=== PATIENT | male | born 1975 | race Caucasian/White ===

== ENCOUNTER 2019-02-04 05:13 | Inpatient (IN) | payer OTHER, SELFPAY ==
[2019-02-04] VITALS (25 sets, daily range): BP systolic 125–153; BP diastolic 75–103; PULSE 83–127; RESP 16–29; TEMP 36.9–37.3; O2SAT 92–97; BMI 33.9
--- NOTE | 2019-02-04 | PATH_ITS ---
[facility] Accession Number: [id number] . 01 Material submitted: . gallbladder - PORTION OF GALLBLADDER AND GALLSTONE . 01 Clinical history: . RT SIDE PAIN/NO DEEP BREATHS/SHALLOW BREATHING . 02 Diagnosis: Portion of Gallbladder and Gallstone, Cholecystectomy: Acute and gangrenous cholecystitis and cholelithiasis. Two transmural defects present at gross examination, nonspecific. . MRV 02/07/2019 1417 Local . 02 Electronically signed: . Yaneth Santo MD, Pathologist NPI- [id number] . 01 Gross description: . Specimen is received in a formalin-filled container, labeled portion of gallbladder and gallstone, and consists of a 4.5 x 2.6 x 2.1 cm, pink, hemorrhagic, smooth to diffusely cauterized gallbladder which has two transmural defects at the neck and body, 0.5 cm up to 1.6 cm. The presumed cystic duct margin is inked orange. The mucosa is diffusely hemorrhagic, trabeculated and granular, and the wall thickness ranges from 0.2 cm up to 0.7 cm. There is a single brown-black bosselated calculus present, up to 2.4 cm. Sectioning reveals hemorrhagic, otherwise unremarkable cut surfaces. [employer] sections including orange-inked cystic duct margin are submitted in A1. ([id number]) /MRV 02/06/2019 1607 Local . 02 Pathologist provided ICD-10: K81.0, K80.60 . 02 CPT . 414650 Performed at: [address] [facility], [place], [place] [id number] MD James Matos MD Phone: [phone] Performed at: [facility] [id number] [place] [id number] MD Keesha Barney MD Phone: [phone]
--- NOTE | 2019-02-04 05:17 | DI.RAD.S_ITS ---
PROCEDURE: XR CHEST 1V INDICATIONS: Chest pain TECHNIQUE: One view of the chest was acquired. COMPARISON: None. FINDINGS: Surgical changes and devices: None. Lungs and pleura: Increased attenuation is identified within the bilateral lung bases, which has a somewhat streaky or linear appearance. No definite pulmonary areas of consolidation are evident. No large effusion or definite pneumothorax is appreciated. Mediastinum: Mediastinal contours appear normal. Heart size is normal. Bones and chest wall: No suspicious bony lesions. Overlying soft tissues appear unremarkable. IMPRESSION: Bibasilar atelectasis versus scarring. Please correlate clinically to exclude pneumonia. Dictated by: Jacob Mc M.D. on 02/04/2019 at 7:38 Approved by: Jacob Mc M.D. on 02/04/2019 at 7:39
--- NOTE | 2019-02-04 05:18 | ED_ITS ---
HPI - General Adult <Tex SharronDO blair - Last Filed: 02/04/19 18:30> General Chief complaint: Abdominal Pain Stated complaint: rt side pain/no deep breaths/shallow breathing Time Seen by Provider: 02/04/19 05:16 Source: patient Mode of arrival: Ambulatory Limitations: no limitations History of Present Illness HPI narrative: 44-year-old male here for evaluation of right upper quadrant abdo conner pain and shortness of breath secondary to pain. Two days ago was seen at an outside facility for epigastric pain and back pain. That time he had lab test performed and right upper quadrant ultrasound which showed cholelithiasis but no signs of cholecystitis. He was given symptom treatment and discharged home. He was also given a referral to see General surgery as an outpatient. Patient states since that time the epigastric pain has not moved her right upper quadrant pain. States that he is having problems breathing both secondary to pain and also states that it feels like he cannot take a big deep breath. Has had some vomiting. No change in stool or bowel habits. Has had his appendix out but no other abdominal surgeries. Related Data Allergies Allergy/AdvReac Type Severity Reaction Status Date / Time No Known Drug Allergies Allergy Verified 02/04/19 06:14 Review of Systems <Tex SharronDO Nury pinto Last Filed: 02/04/19 18:30> Constitutional Constitutional: Denies fever(s) Cardiovascular Cardiovascular: Denies chest pain and Reports dyspnea Respiratory Respiratory: Reports pain on inspiration and Reports dyspnea Gastrointestinal Gastrointestinal: Reports abdominal pain, Denies change in stool character and Reports nausea Genitourinary Genitourinary: Denies dysuria Musculoskeletal Musculoskeletal: Denies myalgias and Denies arthralgias Integumentary/Breasts Skin/Breast: Denies lesions and Denies rash Psychiatric Psychiatric: Denies depression Hematologic/Lymphatic Hematologic/Lymphatic: Denies easy bleeding and Denies easy bruising Allergic/Immunologic Allergic/Immunologic: Denies urticaria Patient History <DO Nury Hurd Last Filed: 02/04/19 18:30> Medical History Patient denies medical problems (Acute) Surgical History Hx of appendectomy (Acute) Social History household members: spouse Smoking Status: Never smoker Exam <Tex Craft DO - Last Filed: 02/04/19 18:30> Initial Vital Signs Initial Vital Signs: Vital Signs Temperature 98.6 F 02/04/19 05:20 Pulse Rate 127 H 02/04/19 05:20 Respiratory Rate 28 H 02/04/19 05:20 Blood Pressure 150/99 H 02/04/19 05:20 Pulse Oximetry 94 02/04/19 05:20 Const General: cooperative, No comfortable (Uncomfortable), well groomed and acute distress Orientation: alert and awake [facility] Head: normal to inspection and normocephalic Resp Effort & Inspection: cough, labored and other (Splinting) Auscultation: clear to auscultation bilaterally Cardio Rate: tachycardic Rhythm: regular rhythm GI Inspection: non-distended Palpation: soft, No firm and tender Back/Spine/Pelvis Back: No CVA tenderness Thoracic/Lumbar Spine: No thoracic spinal tenderness and No lumbar spinal tenderness Skin Lesions: no lesions Rashes: no rashes Neuro General: alert and awake Cognition: normal cognition Speech: speech normal Extrem General: normal to inspection and capillary refill normal Psych Appearance: grossly normal and well kempt <Yaneth Pierce MD - Last Filed: 02/04/19 09:29> Initial Vital Signs Initial Vital Signs: Vital Signs Temperature 98.6 F 02/04/19 05:20 Pulse Rate 127 H 02/04/19 05:20 Respiratory Rate 28 H 02/04/19 05:20 Blood Pressure 150/99 H 02/04/19 05:20 Pulse Oximetry 94 02/04/19 05:20 Course <Tex Craft DO - Last Filed: 02/04/19 18:30> Orders Ordered: Diphenhydramine HCl (Benadryl) 25 mg IV Q6HR PRN PRN Reason: Itching Docusate Sodium (Colace) 100 mg PO BID PRN PRN Reason: Constipation Enoxaparin Sodium (Lovenox) 40 mg SUBCUT DAILY [facility] Hydromorphone HCl (Dilaudid) 0.5 mg IV Q4H PRN PRN Reason: Pain, Severe (7-10) Lactated Ringer's (Lactated Ringers) 1,000 mls @ 125 mls/hr IV CONT CHAZ Last Admin: 02/04/19 16:23 Dose: 125 mls/hr Documented by: TESSY Piperacillin/Tazobactam/Dextrose (Zosyn) 4.5 gm in 100 mls @ 200 mls/hr IV Q6H [facility] Influenza Virus Vaccine (Flu Vaccine) 0.5 ml IM .ONCE ONE Stop: 02/05/19 09:01 Naloxone HCl (Narcan) 0.2 mg IV Q2MIN PRN PRN Reason: Opiate Reversal Ondansetron HCl (Zofran) 4 mg IV Q4HR PRN PRN Reason: Nausea And Vomiting Oxycodone HCl (Percolone) 5 mg PO Q6HR PRN PRN Reason: Pain, Moderate (4-6) Last Admin: 02/04/19 16:30 Dose: 5 mg Documented by: TESSY Oxycodone/Acetaminophen (Percocet 5/325) 2 tab PO Q6HR PRN PRN Reason: Pain, Severe (7-10) Discontinued Medications Albuterol (Ventolin) 2.5 mg INH NOW PRN PRN Reason: Coughing, Wheezing, Dyspnea Benzocaine (Cepacol Lozenge) 1 each PO PRN PRN PRN Reason: Sore Throat Bupivacaine HCl/Epinephrine Bitart (Sensorcaine 0.25% W/ Epi (Pf)) 30 ml INJ NOW ONE Stop: 02/04/19 11:34 Last Admin: 02/04/19 11:33 Dose: 40 ml Documented by: EZEQUIEL Fentanyl (Sublimaze) 50 mcg IV Q5MIN PRN PRN Reason: Pain, Moderate (4-6) Hydromorphone HCl (Dilaudid) 0.5 mg IV NOW ONE Stop: 02/04/19 05:39 Last Admin: 02/04/19 05:44 Dose: 0.5 mg Documented by: ARTEM Hydromorphone HCl (Dilaudid) 0.5 mg IV Q5MIN PRN PRN Reason: Pain, Moderate (4-6) Last Admin: 02/04/19 15:07 Dose: 0.5 mg Documented by: APARNAORRIO Hydroxyzine HCl (Vistaril) 25 mg IM NOW PRN PRN Reason: Pain, Mild (1-3) Sodium Chloride (Normal Saline 0.9%) 1,000 mls @ 150 mls/hr IV CONT CHAZ Last Infusion: 02/04/19 11:47 Dose: 200 mls/hr Documented by: Infusion: 02/04/19 10:44 Dose: 200 mls/hr Documented by: Infusion: 02/04/19 10:20 Dose: 200 mls/hr Documented by: Infusion: 02/04/19 09:00 Dose: 150 mls/hr Documented by: Infusion: 02/04/19 08:00 Dose: 0 mls/hr Documented by: Admin: 02/04/19 07:28 Dose: 150 mls/hr Documented by: MARK Piperacillin/Tazobactam/Dextrose (Zosyn) 3.375 gm in 50 mls @ 100 mls/hr IV NOW ONE Stop: 02/04/19 07:57 Last Admin: 02/04/19 14:45 Dose: 100 mls/hr Documented by: Infusion: 02/04/19 08:54 Dose: 0 mls/hr Documented by: Infusion: 02/04/19 08:45 Dose: 100 mls/hr Documented by: Infusion: 02/04/19 08:00 Dose: 0 mls/hr Documented by: Admin: 02/04/19 07:39 Dose: 100 mls/hr Documented by: MARK Lactated Ringer's (Lactated Ringers) 1,000 mls @ 42 mls/hr IV CONT CHAZ Last Admin: 02/04/19 11:49 Dose: 42 mls/hr Documented by: Infusion: 02/04/19 11:48 Dose: 0 mls/hr Documented by: Admin: 02/04/19 10:53 Dose: 42 mls/hr Documented by: CHRIS Iopamidol (Isovue-M 300) 15 ml INJ NOW ONE Stop: 02/04/19 13:53 Last Admin: 02/04/19 13:53 Dose: 30 ml Documented by: EZEQUIEL Lorazepam (Ativan) 0.25 mg IV NOW PRN PRN Reason: Anxiety Meperidine HCl (Demerol) 25 mg IV Q5MIN PRN PRN Reason: Pain or shivering Metoclopramide HCl (Reglan) 10 mg IV NOW PRN PRN Reason: Nausea And Vomiting Ondansetron HCl (Zofran) 4 mg IV NOW PRN PRN Reason: Nausea And Vomiting Vital Signs Vital signs: Vital Signs - 8 hr 02/04/19 05:20 02/04/19 05:39 02/04/19 06:45 Temperature 98.6 F Pulse Rate 127 H 107 H 91 H Respiratory Rate 28 H 29 H 21 Blood Pressure 150/99 H Blood Pressure [Right Arm] 150/99 H 134/91 H Pulse Oximetry 94 94 92 02/04/19 07:43 02/04/19 09:09 Temperature Pulse Rate 90 83 Respiratory Rate 19 16 Blood Pressure Blood Pressure [Right Arm] 128/75 125/78 Pulse Oximetry 93 92 <Yaneth Pierce MD - Last Filed: 02/04/19 09:29> Course Course Narrative: The patient was signed out to me at change of shift by Dr. Craft, pending eMAR CP evaluation by surgery. MRCP was done, and showed appeared to be a cholecystitis, secondary to cholelithiasis. I spoke with Dr. Heredia again, who came to see the patient in the emergency department and agreed to admit the patient to her service. The patient received Zosyn in the emergency department. Orders Ordered: Diphenhydramine HCl (Benadryl) 25 mg IV Q6HR PRN PRN Reason: Itching Docusate Sodium (Colace) 100 mg PO BID PRN PRN Reason: Constipation Enoxaparin Sodium (Lovenox) 40 mg SUBCUT DAILY [facility] Hydromorphone HCl (Dilaudid) 0.5 mg IV Q4H PRN PRN Reason: Pain, Severe (7-10) Lactated Ringer's (Lactated Ringers) 1,000 mls @ 125 mls/hr IV CONT CHAZ Last Admin: 02/04/19 16:23 Dose: 125 mls/hr Documented by: TESSY Piperacillin/Tazobactam/Dextrose (Zosyn) 4.5 gm in 100 mls @ 200 mls/hr IV Q6H [facility] Influenza Virus Vaccine (Flu Vaccine) 0.5 ml IM .ONCE ONE Stop: 02/05/19 09:01 Naloxone HCl (Narcan) 0.2 mg IV Q2MIN PRN PRN Reason: Opiate Reversal Ondansetron HCl (Zofran) 4 mg IV Q4HR PRN PRN Reason: Nausea And Vomiting Oxycodone HCl (Percolone) 5 mg PO Q6HR PRN PRN Reason: Pain, Moderate (4-6) Last Admin: 02/04/19 16:30 Dose: 5 mg Documented by: TESSY Oxycodone/Acetaminophen (Percocet 5/325) 2 tab PO Q6HR PRN PRN Reason: Pain, Severe (7-10) Discontinued Medications Albuterol (Ventolin) 2.5 mg INH NOW PRN PRN Reason: Coughing, Wheezing, Dyspnea Benzocaine (Cepacol Lozenge) 1 each PO PRN PRN PRN Reason: Sore Throat Bupivacaine HCl/Epinephrine Bitart (Sensorcaine 0.25% W/ Epi (Pf)) 30 ml INJ NOW ONE Stop: 02/04/19 11:34 Last Admin: 02/04/19 11:33 Dose: 40 ml Documented by: EZEQUIEL Fentanyl (Sublimaze) 50 mcg IV Q5MIN PRN PRN Reason: Pain, Moderate (4-6) Hydromorphone HCl (Dilaudid) 0.5 mg IV NOW ONE Stop: 02/04/19 05:39 Last Admin: 02/04/19 05:44 Dose: 0.5 mg Documented by: ARTEM Hydromorphone HCl (Dilaudid) 0.5 mg IV Q5MIN PRN PRN Reason: Pain, Moderate (4-6) Last Admin: 02/04/19 15:07 Dose: 0.5 mg Documented by: STEPHANIEIO Hydroxyzine HCl (Vistaril) 25 mg IM NOW PRN PRN Reason: Pain, Mild (1-3) Sodium Chloride (Normal Saline 0.9%) 1,000 mls @ 150 mls/hr IV CONT CHAZ Last Infusion: 02/04/19 11:47 Dose: 200 mls/hr Documented by: Infusion: 02/04/19 10:44 Dose: 200 mls/hr Documented by: Infusion: 02/04/19 10:20 Dose: 200 mls/hr Documented by: Infusion: 02/04/19 09:00 Dose: 150 mls/hr Documented by: Infusion: 02/04/19 08:00 Dose: 0 mls/hr Documented by: Admin: 02/04/19 07:28 Dose: 150 mls/hr Documented by: MARK Piperacillin/Tazobactam/Dextrose (Zosyn) 3.375 gm in 50 mls @ 100 mls/hr IV NOW ONE Stop: 02/04/19 07:57 Last Admin: 02/04/19 14:45 Dose: 100 mls/hr Documented by: Infusion: 02/04/19 08:54 Dose: 0 mls/hr Documented by: Infusion: 02/04/19 08:45 Dose: 100 mls/hr Documented by: Infusion: 02/04/19 08:00 Dose: 0 mls/hr Documented by: Admin: 02/04/19 07:39 Dose: 100 mls/hr Documented by: MARK Lactated Ringer's (Lactated Ringers) 1,000 mls @ 42 mls/hr IV CONT CHAZ Last Admin: 02/04/19 11:49 Dose: 42 mls/hr Documented by: Infusion: 02/04/19 11:48 Dose: 0 mls/hr Documented by: Admin: 02/04/19 10:53 Dose: 42 mls/hr Documented by: CHRIS Iopamidol (Isovue-M 300) 15 ml INJ NOW ONE Stop: 02/04/19 13:53 Last Admin: 02/04/19 13:53 Dose: 30 ml Documented by: EZEQUIEL Lorazepam (Ativan) 0.25 mg IV NOW PRN PRN Reason: Anxiety Meperidine HCl (Demerol) 25 mg IV Q5MIN PRN PRN Reason: Pain or shivering Metoclopramide HCl (Reglan) 10 mg IV NOW PRN PRN Reason: Nausea And Vomiting Ondansetron HCl (Zofran) 4 mg IV NOW PRN PRN Reason: Nausea And Vomiting Vital Signs Vital signs: Vital Signs - 8 hr 02/04/19 05:20 02/04/19 05:39 02/04/19 06:45 Temperature 98.6 F Pulse Rate 127 H 107 H 91 H Respiratory Rate 28 H 29 H 21 Blood Pressure 150/99 H Blood Pressure [Right Arm] 150/99 H 134/91 H Pulse Oximetry 94 94 92 02/04/19 07:43 02/04/19 09:09 Temperature Pulse Rate 90 83 Respiratory Rate 19 16 Blood Pressure Blood Pressure [Right Arm] 128/75 125/78 Pulse Oximetry 93 92 Medical Decision Making <Tex Craft DO - Last Filed: 02/04/19 18:30> Lab Data Lab results reviewed: Yes I reviewed the patient's lab results. Result diagrams: 02/04/19 05:30 02/04/19 05:30 Labs: Lab Results 02/04/19 02/04/19 Range/Units 05:30 05:30 WBC 16.3 H (4.5-11.0) X10^3/uL RBC 5.00 (4.5-5.9) X10^6/uL Hgb 15.7 (13.5-17.5) g/dL Hct 44.8 (41-53) % MCV 89.7 (80-100) fL MCH 31.5 (26-34) PG MCHC 35.1 (30-36) % RDW 13.2 (11.6-14.8) % Plt Count 262 (150-400) X10^3/uL Neut % (Auto) 70.9 (50-75) % Lymph % (Auto) 12.6 L (25-40) % [place] % (Auto) 15.5 H (3-14) % Eos % (Auto) 0.4 L (2-4) % Baso % (Auto) 0.6 (0-2) % Neut # (Auto) 16581 H (2229-7465) /uL Lymph # (Auto) 2000 (5950-8010) /uL [place] # (Auto) 2500 H (0-900) /uL Eos # (Auto) 100 (0-450) /uL Baso # (Auto) 100 (0-100) /uL Sodium 138 (137-145) mmol/L Potassium 4.1 (3.4-5.1) mmol/L Chloride 102 (98-107) mmol/L Carbon Dioxide 26 (22-32) mmol/L BUN 16 (9-20) mg/dL Creatinine 1.10 (0.66-1.25) mg/dL Estimated GFR > 60.0 (>60) mL/min BUN/Creatinine Ratio 14.5 (6-22) Glucose 114 H (70-100) mg/dL Calcium 9.3 (8.4-10.2) mg/dL Total Bilirubin 3.1 H (0.2-1.3) mg/dL AST 44 (17-59) IU/L ALT 61 H (<50) IU/L Alkaline Phosphatase 99 (38-126) U/L Total Protein 8.0 (6.3-8.2) g/dL Albumin 4.5 (3.5-5.0) g/dL Globulin 3.5 (1.7-4.1) g/dL Albumin/Globulin Ratio 1.3 (1.0-2.8) Lipase 97 (23-300) U/L Imaging Data US - abdomen: Radiologist's impression: Non mobile gallstones, gallbladder wall thickening with a positive sonographic Finney sign. Consistent with acute cholecystitis. No mention of gallbladder duct size. ECG Data Attestation: I personally reviewed and interpreted this ECG as follows: Prior ECG tracings: not available for review Interpretation: Sinus tachycardia Ventricular rate of 104 Normal axis Normal QRS Normal QTC No ST T wave changes MDM Narrative Medical decision making narrative: Labs from outside facility dated 02/02/2019 AST 38 ALT 52 Alk-phos 109 Total bilirubin 1.2 Additional Information: Patient's history and physical exam and labs and ultrasound is concerning for gallbladder pathology and acute cholecystitis. Patient symptoms improved after pain medication. Did discuss the case with Dr. Heredia with General surgery. Given his elevated bilirubin feel the patient needs a MRCP for further evaluation. This is ordered. Care turned over to Dr. Pierce at change of shift to follow up on MRCP and disposition. <Yaneth Pierce MD - Last Filed: 02/04/19 09:29> Medical Records Medical records reviewed: Yes I reviewed the patient's medical records. Lab Data Lab results reviewed: Yes I reviewed the patient's lab results. Labs: Lab Results 02/04/19 02/04/19 Range/Units 05:30 05:30 WBC 16.3 H (4.5-11.0) X10^3/uL RBC 5.00 (4.5-5.9) X10^6/uL Hgb 15.7 (13.5-17.5) g/dL Hct 44.8 (41-53) % MCV 89.7 (80-100) fL MCH 31.5 (26-34) PG MCHC 35.1 (30-36) % RDW 13.2 (11.6-14.8) % Plt Count 262 (150-400) X10^3/uL Neut % (Auto) 70.9 (50-75) % Lymph % (Auto) 12.6 L (25-40) % [place] % (Auto) 15.5 H (3-14) % Eos % (Auto) 0.4 L (2-4) % Baso % (Auto) 0.6 (0-2) % Neut # (Auto) 34034 H (9913-3061) /uL Lymph # (Auto) 2000 (4740-0894) /uL [place] # (Auto) 2500 H (0-900) /uL Eos # (Auto) 100 (0-450) /uL Baso # (Auto) 100 (0-100) /uL Sodium 138 (137-145) mmol/L Potassium 4.1 (3.4-5.1) mmol/L Chloride 102 (98-107) mmol/L Carbon Dioxide 26 (22-32) mmol/L BUN 16 (9-20) mg/dL Creatinine 1.10 (0.66-1.25) mg/dL Estimated GFR > 60.0 (>60) mL/min BUN/Creatinine Ratio 14.5 (6-22) Glucose 114 H (70-100) mg/dL Calcium 9.3 (8.4-10.2) mg/dL Total Bilirubin 3.1 H (0.2-1.3) mg/dL AST 44 (17-59) IU/L ALT 61 H (<50) IU/L Alkaline Phosphatase 99 (38-126) U/L Total Protein 8.0 (6.3-8.2) g/dL Albumin 4.5 (3.5-5.0) g/dL Globulin 3.5 (1.7-4.1) g/dL Albumin/Globulin Ratio 1.3 (1.0-2.8) Lipase 97 (23-300) U/L Imaging Data MRI - abdomen: Radiologist's impression: PROCEDURE: MR ABDOMEN WO CON INDICATIONS: eval for CBD stones TECHNIQUE: Coronal HASTE through the abdomen, axial 2-D FLASH in- and [id number], and breath-hold T2 FSE with fat saturation through the biliary system and pancreas. Oblique coronal and axial thin-slice HASTE, radial thick-slab HASTE centered on the extrahepatic bile ducts. Intravenous secretin: Not requested. COMPARISON: [facility], , ABDOMEN LIMITED, 02/04/2019, 6:01. FINDINGS: Image quality: Diagnostic. Liver and biliary system: The liver is normal in size and demonstrates prominent signal dropout on opposed phased images, compatible with hepatic steatosis. No definite liver lesions are appreciated. However, there may be a tiny cyst evident involving the posterior right hepatic lobe. No intrahepatic biliary dilatation is identified. The common bile duct measures up to approximately 7 mm in diameter, which is mildly enlarged. A prominent gallstone measuring up to approximately 1.8 cm is present within the neck of the gallbladder. Additional sludge within the gallbladder is present. There is borderline thickening of the pole of the gallbladder with prominent p ericholecystic edema and fluid evident. The expected flow voids are identified within the portal and hepatic veins. Other solid organs: There is slight edema about the region of the head of the p ancreas, which is likely reactive. No loculated fluid collections are identified. The adrenals and kidneys are within normal limits. The spleen is mildly enlarged at 12.3 cm in craniocaudal dimension. Nodes and vessels: No retroperitoneal or mesenteric adenopathy by size criteria. Aorta and inferior vena cava are normal in size. Bowel and peritoneum: The imaged bowel loops are nondilated. Mild edema and a small amount of free fluid within the right upper quadrant is present. No loculated fluid collections are identified. A small fat containing periumbilical hernia is incidentally noted. Lung bases: No basal pleural effusions. Heart size is normal. Bones and soft tissues: No ventral hernias. Bone marrow is of normal overall signal. IMPRESSION: 1. Cholelithiasis with prominent edema within the soft tissue surrounding the gallbladder and borderline enlargement of the common bile duct is suspicious for acute cholecystitis. Please correlate clinically. 2. Choledocholithiasis. 3. Hepatic steatosis. 4. Mild splenomegaly. Dictated by: Jacob Mc M.D. on 02/04/2019 at 7:55 Approved by: Jacob Mc M.D. on 02/04/2019 at 7:59 Discharge Plan Departure Patient Disposition: Admitted As Inpatient Clinical Impression: Acute cholecystitis Discharge Date/Time: 02/04/19 10:46 Admit Date/Time: 02/04/19 09:35 Admit Provider: Ira Heredia
--- NOTE | 2019-02-04 05:31 | DI.US.S_ITS ---
PROCEDURE: US ABDOMEN LIMITED INDICATIONS: RIGHT UPPER QUADRANT ULTRASOUND EVALULATE FOR CHOLECYSTITIS TECHNIQUE: Real-time focused scanning was performed of the abdomen, with image documentation. COMPARISON: [facility], US, US ABDOMEN COMPLETE, 02/02/2019, 16:10. FINDINGS: The study was technically challenging related to the patient's body habitus and increased echogenicity of the liver. The imaged portions of the liver are noted to be prominently echogenic when compared to the right kidney. No focal liver lesion is identified. Gallstones are present within the gallbladder with prominent wall thickening of the gallbladder measuring up to 7 mm. The patient exhibited a positive sonographic Finney sign. A gallstone is evident at the neck of the gallbladder which is non-mobile. Debris is seen within the fundal portion of the gallbladder. The biliary ducts were not well seen the pancreas was not adequately seen, as well related to overlying bowel gas. IMPRESSION: 1. Nonmobile stone within the neck of the gallbladder with corresponding gallbladder wall thickening and a positive sonographic Finney sign is suspicious for cholecystitis. Please correlate clinically. 2. Probable hepatic steatosis. Note: The preliminary report provided by [employer]. is concordant with the final report. Dictated by: Jacob Mc M.D. on 02/04/2019 at 7:33 Approved by: Jacob Mc M.D. on 02/04/2019 at 7:36
--- NOTE | 2019-02-04 05:37 | PC.NURSE ---
reports normal poop
[2019-02-04 05:39] LABS: Add Manual Diff / Slide Review NO; Basophils Absolute Auto 100 /uL (0-100); Basophils Percent Auto 0.6 % (0-2); Eosinophils Absolute Auto 100 /uL (0-450); Eosinophils Percent Auto 0.4 % (2-4); Hematocrit 44.8 % (41-53); Hemoglobin 15.7 g/dL (13.5-17.5); Lymphocytes Absolute Auto 2000 /uL (1100-4500); Lymphocytes Percent Auto 12.6 % (25-40); Mean Corpuscular HGB Conc 35.1 % (30-36); Mean Corpuscular Hemoglobin 31.5 PG (26-34); Mean Corpuscular Volume 89.7 fL (80-100); Monocytes Absolute Auto 2500 /uL (0-900); Monocytes Percent Auto 15.5 % (3-14); Neutrophils Absolute Auto 11500 /uL (1500-7000); Neutrophils Percent Auto 70.9 % (50-75); Platelet Count 262 X10^3/uL (150-400); Red Cell Distribution Width 13.2 % (11.6-14.8); White Blood Cell Count 16.3 X10^3/uL (4.5-11.0)
[2019-02-04] MEDS: HYDROMORPHONE 0.5 MG INJ IV ×2 (05:44→18:52)
[2019-02-04 05:54] LABS: Alanine Aminotransferase 61 IU/L (<50); Albumin 4.5 g/dL (3.5-5.0); Albumin Globulin Ratio 1.3 (1.0-2.8); Alkaline Phosphatase 99 U/L (38-126); Aspartate Aminotransferase 44 IU/L (17-59); BUN Creatinine Ratio 14.5 (6-22); Bilirubin Total 3.1 mg/dL (0.2-1.3); Blood Urea Nitrogen 16 mg/dL (9-20); Calcium 9.3 mg/dL (8.4-10.2); Carbon Dioxide 26 mmol/L (22-32); Chloride 102 mmol/L (98-107); Estimated Glomerular Filt Rate > 60.0 mL/min (>60); Globulin 3.5 g/dL (1.7-4.1); Glucose 114 mg/dL (70-100); HEMOLYSIS < 15 (0-50); Lipase 97 U/L (23-300); Potassium 4.1 mmol/L (3.4-5.1); Sodium 138 mmol/L (137-145)
--- NOTE | 2019-02-04 07:00 | DI.MRI.S_ITS ---
PROCEDURE: MR ABDOMEN WO CON INDICATIONS: eval for CBD stones TECHNIQUE: Coronal HASTE through the abdomen, axial 2-D FLASH in- and [id number], and breath-hold T2 FSE with fat saturation through the biliary system and pancreas. Oblique coronal and axial thin-slice HASTE, radial thick-slab HASTE centered on the extrahepatic bile ducts. Intravenous secretin: Not requested. COMPARISON: [facility], , ABDOMEN LIMITED, 02/04/2019, 6:01. FINDINGS: Image quality: Diagnostic. Liver and biliary system: The liver is normal in size and demonstrates prominent signal dropout on opposed phased images, compatible with hepatic steatosis. No definite liver lesions are appreciated. However, there may be a tiny cyst evident involving the posterior right hepatic lobe. No intrahepatic biliary dilatation is identified. The common bile duct measures up to approximately 7 mm in diameter, which is mildly enlarged. A prominent gallstone measuring up to approximately 1.8 cm is present within the neck of the gallbladder. Additional sludge within the gallbladder is present. There is borderline thickening of the pole of the gallbladder with prominent pericholecystic edema and fluid evident. The expected flow voids are identified within the portal and hepatic veins. Other solid organs: There is slight edema about the region of the head of the pancreas, which is likely reactive. No loculated fluid collections are identified. The adrenals and kidneys are within normal limits. The spleen is mildly enlarged at 12.3 cm in craniocaudal dimension. Nodes and vessels: No retroperitoneal or mesenteric adenopathy by size criteria. Aorta and inferior vena cava are normal in size. Bowel and peritoneum: The imaged bowel loops are nondilated. Mild edema and a small amount of free fluid within the right upper quadrant is present. No loculated fluid collections are identified. A small fat containing periumbilical hernia is incidentally noted. Lung bases: No basal pleural effusions. Heart size is normal. Bones and soft tissues: No ventral hernias. Bone marrow is of normal overall signal. IMPRESSION: 1. Cholelithiasis with prominent edema within the soft tissue surrounding the gallbladder and borderline enlargement of the common bile duct is suspicious for acute cholecystitis. Please correlate clinically. 2. Choledocholithiasis. 3. Hepatic steatosis. 4. Mild splenomegaly. Dictated by: Jacob Mc M.D. on 02/04/2019 at 7:55 Approved by: Jacob Mc M.D. on 02/04/2019 at 7:59
[2019-02-04] MEDS: SODIUM CHLORIDE 0.9% 1,000 ML 150 ML IV (07:28)
--- NOTE | 2019-02-04 07:32 | PC.NURSE ---
alert oriented x4 ,maew, skin warm dry pink. reports, right upper abdominal pain onset tuesday, evaluated at [facility], dx with cholelithiasis, given rx for pain controlled, felt fine tuesday, had macaroni and cheese at night, then woke up at 4am today with severe pain, shortness of breath due to pain, denies fever or vomiting.
[2019-02-04] MEDS: PIPERACILLIN-TAZO 3.375 GM/50 ML FROZ.PIGGY IV ×2 (07:39→14:45)
--- NOTE | 2019-02-04 07:43 | PC.NURSE ---
last solid meal last night at 1700, last drink at 700am today, pt aware and verbal understanding npo at this time.
--- NOTE | 2019-02-04 09:38 | PM.HP.1 ---
History of Present Illness History of Present Illness Date Patient Seen: 02/04/19 Time Patient Seen: 09:38 Chief complaint: rt side pain/no deep breaths/shallow breathing Narrative: This is a 44-year-old man with history of obesity, sleep apnea, acid reflux, gallstones with biliary colic, who comes in to the ER this morning complaining of 1 day of severe right upper quadrant pain causing him shortness of breath. He was seen in the ER at [facility] in [facility] on Tuesday, with some epigastric pain and was found to have gallstones but no signs of cholecystitis, and was sent home with pain medicine and antiemetics. His pain resolved on Tuesday, but then started again on Tuesday night after dinner. He denies nausea or vomiting, denies fevers denies jaundice. In the ER he had an ultrasound which showed gallstones, gallbladder wall thickening and pericholecystic fluid. He also had a bilirubin of 3.1. For this reason he was sent for an urgent MRCP. 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 Past medical history: Sleep apnea, acid reflux, biliary colic, gallstones Past surgical history: Laparoscopic appendectomy with drain placement Allergies: Denies Medications: Omeprazole, oxycodone, Zofran Family history: Patient's mother just had her gallbladder out 2 weeks ago, no other family history of gallbladder disease. No other relevant family history. Social history: Occasional alcohol, denies tobacco, denies other substances. Lives at home with his . ROS: 10 system review was completed. Nothing remarkable other than as mentioned in the HPI. PE: GENERAL: Well groomed and cooperative. Appears stated age. Answers questions promptly and appropriately. Vital signs noted. HENT: Normocephalic, atraumatic. Hearing intact. Oral mucosa is pink and moist. EYES: Conjunctiva pink, sclera white, no periorbital swelling. CARDIOVASCULAR: Regular rate. No pedal edema. RESPIRATORY: Normal respiratory rate, mild tachypnea secondary to right upper quadrant pain GASTROINTESTINAL: Abdomen soft and non-distended; significant tenderness to palpation in the right upper quadrant GENITALURINARY: + right flank tenderness. MUSCULOSKELETAL: Equal tone and mass bilaterally. SKIN: Warm, dry, soft, appropriate color for ethnicity. No other lesions, rashes, or wounds. NEURO: Alert and Oriented X 3. No gross sensory deficits, or cognitive issues. PSYCH: Appropriate affect and mood. Patient History Medical History Patient denies medical problems (Acute) Surgical History Hx of appendectomy (Acute) Family & Social History Safety & Behavioral: Feels Safe in Current Yes Environment Tobacco & Substance use: Smoking Status Never smoker alcohol intake frequency a few times a month Substance Use Type does not use Meds Home Medications and Allergies Allergies Allergy/AdvReac Type Severity Reaction Status Date / Time No Known Drug Allergies Allergy Verified 02/04/19 06:14 Exam Vital Signs (past 8 hours): - 02/04/19 05:20 02/04/19 05:39 02/04/19 06:45 Temperature 98.6 F Pulse Rate 127 H 107 H 91 H Respiratory Rate 28 H 29 H 21 Blood Pressure 150/99 H Blood Pressure [Right Arm] 150/99 H 134/91 H Pulse Oximetry 94 94 92 02/04/19 07:43 02/04/19 09:09 Temperature Pulse Rate 90 83 Respiratory Rate 19 16 Blood Pressure Blood Pressure [Right Arm] 128/75 125/78 Pulse Oximetry 93 92 Oxygen Delivery Method Room Air Objective Labs Result Diagrams: 02/04/19 05:30 02/04/19 05:30 Labs: Laboratory Results - last 24 hr 02/04/19 02/04/19 05:30 05:30 WBC 16.3 H RBC 5.00 Hgb 15.7 Hct 44.8 MCV 89.7 MCH 31.5 MCHC 35.1 RDW 13.2 Plt Count 262 Neut % (Auto) 70.9 Lymph % (Auto) 12.6 L [place]bach % (Auto) 15.5 H Eos % (Auto) 0.4 L Baso % (Auto) 0.6 Neut # (Auto) 60846 H Lymph # (Auto) 2000 [place]bach # (Auto) 2500 H Eos # (Auto) 100 Baso # (Auto) 100 Sodium 138 Potassium 4.1 Chloride 102 Carbon Dioxide 26 BUN 16 Creatinine 1.10 Estimated GFR > 60.0 BUN/Creatinine Ratio 14.5 Glucose 114 H Calcium 9.3 Total Bilirubin 3.1 H AST 44 ALT 61 H Alkaline Phosphatase 99 Total Protein 8.0 Albumin 4.5 Globulin 3.5 Albumin/Globulin Ratio 1.3 Lipase 97 Assessment & Plan Assessment and plan (1) Acute cholecystitis: Problem details: Severe acute on chronic cholecystitis Current visit: Yes Status: Acute (2) Elevated bilirubin: Problem details: MRI shows no obstructing stones in the common duct Current visit: Yes Status: Acute (3) Obesity (BMI 30.0-34.9): Problem details: BMI 33 Current visit: Yes Status: Acute (4) Obstructive sleep apnea: Current visit: Yes Status: Acute (5) Acid reflux: Problem details: Controlled on omeprazole Current visit: Yes Status: Acute Assessment & Plan narrative: This is a 44-year-old man with acute on chronic cholecystitis. I discussed with him the risks and benefits of going ahead with laparoscopic cholecystectomy in this situation. I explained to him that given the inflammation around his gallbladder this slightly increases the chance of a complication during his surgery, however waiting is likely to increase the risk. I have explained him the risk of bleeding, infection, damage to nearby structures, injury to bile ducts, bile leak, need for additional procedures, need to transfer to an outside hospital, need for open surgery, need for prolonged hospitalization, need for drain placement. The patient desires to proceed with surgery. Plan: NPO, IV fluids, Zosyn To OR for laparoscopic, possible open cholecystectomy as soon as possible 45 minutes were spent face to face with the patient. More than 50% of the time was spent in counseling and co-ordination of care regarding his acute gallbladder disease, the need for urgent gallbladder surgery, and the possible risks and expected outcomes of this procedure. Time Spent With Patient Time with patient: Greater than 35 minutes Quality VTE Deep Vein Thrombosis/Pulmonary Embolism Present on Admission: No
[2019-02-04] MEDS: LACTATED RINGERS 1,000 ML 42 ML IV ×2 (10:53→11:49)
--- NOTE | 2019-02-04 11:23 | SUR.OPER ---
Supine on padded OR bed, head on pillow, safety belt at thigh, bilateral arms secured on padded armboards, less than 90 degrees. Legs uncrossed. Padded footboard in place. Tape over blanket to secure lower legs.
[2019-02-04] MEDS: BUPIVACAINE 0.25% W/ EPI 30 ML VIAL INJ (11:33)
[2019-02-04] MEDS: IOPAMIDOL 15 ML VIAL INJ (13:53)
[2019-02-04] MEDS: HYDROMORPHONE 2 MG INJ 0.5 MG IV (15:07)
--- NOTE | 2019-02-04 15:08 | PM.OP.1 ---
Operative Date/Time/Diagnoses Date of procedure: 02/04/19 Time of procedure: 10:15 Pre-op diagnosis: Acute on chronic cholecystitis with an impacted gall stone Post-op diagnosis: same Procedure & Clinicians Procedure: Laparoscopic subtotal cholecystectomy and intra operative cholangiogram. Prolonged operative time due to extensive chronic and acute inflammation and intrahepatic gallbladder. Same procedure as scheduled: Yes Indications: Acute on chronic cholecystitis Surgeon: Ira Heredia Click Yes if Unassisted: Yes Anesthesia Type: General Operative Notes Findings: Thickened gall bladder with heavy acute and chronic scar tissue with impacted gall stone. Specimen(s): other Prosthetic devices, grafts, tissues, transplants, or devices: gall bladder fundus and impacted gall stone Estimated Blood Loss (mL): 50 Procedure in detail: The patient was brought into the operating room and placed supine on the OR table. Sequential compression devices were placed on both legs and turned on. Appropriate perioperative antibiotics were given prior to the start of surgery. General anesthesia was induced the patient was intubated. The abdomen was prepped and draped in sterile fashion. Surgical time-out was conducted. Local anesthetic was injected under the skin just superior to the umbilicus and a 5 mm vertical incision was made at this site. The umbilical stalk was grasped with a Radha and elevated. A Veress needle was passed through the fascia into proper position. The position was tested with a saline drop test which was appropriate for intra-abdominal Veress needle placement. The abdomen was then insufflated in the usual fashion. Once insufflated to 15 mm Hg the Veress needle was removed and a 5 mm optical trocar was placed under direct vision using a 5 mm 30 degree scope. Once the camera was inside the abdomen I took a look around. There was no injury from port placement. Two additional ports were placed in a similar fashion in the right upper quadrant. There was densely adherent omentum stuck down over top of the liver and gallbladder. This was peeled down using blunt graspers through the 2 lateral port sites. Once the gallbladder came into view the fundus of the gallbladder was grasped and elevated. It was hard and thickened. I then placed a 10 mm port in the epigastrium. The gallbladder was extremely thickened and intrahepatic. The gallbladder was grasped and elevated using the right upper quadrant lateral grasper using. Using a Kittner I gently swept down the adherent colon and duodenum from the gallbladder, exposing the gallbladder surface. All landmarks were obscured by acute and chronic inflammatory rind. I was unable to distinguish the infundibulum or triangle of Calot from the common duct. It was unsafe to proceed with dissection at the hilum and so my attention was turned to the gallbladder fundus for a top down dissection. The fundus was retracted downwards and I began to dissect the plane between the gallbladder and the liver using hook cautery. The gallbladder was very thick and was densely adherent to the liver, but I was able to dissect through the gallbladder wall itself leaving a thin layer of the gall bladder wall on the liver. Through meticulous careful prolonged tedious dissection I gradually took the fundus of the gallbladder off of the liver. About [address] the gallbladder I reached an impacted stone with no clear posterior wall of the gallbladder at this point consistent with a posterior perforation of the gallbladder. I then and removed the stone using a stone forceps. It was approximately 2 cm in size, as described on the MRCP as an impacted stone in the neck of the gallbladder. This was removed and placed into an Endo-Catch bag over top of the liver. There was no refluxing of bile from the area of the stone, and a cystic duct lumen could not be visualized in the midst of extreme inflammatory scar tissue. I then continued to dissect the gallbladder off of the liver as far down as I safely could. This required painstaking and slow, tedious dissection in order to avoid injury to the common bile duct or significant bleeding. This required an additional hour of operative time in order to complete the dissection safely. A 22 modifier should be included in the coding for this case due to the prolonged and tedious dissection necessary to safely complete the operation due to patient disease. Once I had taken the gallbladder as far down as I felt that I safely could, I began to divide it, transecting the gallbladder wall about midway down the body of the gallbladder. No cystic duct lumen could be identified. As I dissected through the gallbladder wall there were 2 arterial structures that bled during dissection. These were difficult to control, as they were coming right out of the middle of thickened scar tissue with no clear vascular structure that could be identified. I controlled the bleeding by grasping the gallbladder wall in the area of bleeding using a [place] grasper. At this point I went ahead and brought my endo-loops in and placed 2 of them across the gallbladder just below the area of bleeding. This controlled the bleeding and I continued to transect the gallbladder distal to these endo-loops. Once I dissected the distal portion of the gallbladder off and put it inside the Endo-Catch bag, I went back to scrutinized the gallbladder fossa and the area of the impacted stone. I was not able to clearly dissect out any ductal structures due to the extensive inflammatory rind and plastered appearance of the gallbladder hilum and the expected area of Calot's triangle. At this point I dropped a cholangiocatheter into the area where the impacted stone had been removed in order to ensure this was not an open cystic duct, and secured the catheter in place with an Covarrubias clamp. Contrast was injected as fluoroscopic images were taken, but the contrast drained out around the site and did not delineate any ductal structures. I felt comfortable that the area I had endo looped included the main body of the gallbladder and that the cystic duct was likely proximal to that structure and therefore closed. At this point I went back to look at the gallbladder fossa to ensure hemostasis on the liver bed. There was no active bleeding or leaking of bile. I cauterized the surface of the gallbladder fossa using hook cautery. The entire area was irrigated and suctioned clean. I placed a 19 round Ramy drain through the lateral port site and placed a channel portion of the drain in the subhepatic space. At this point the epigastric port site was closed with 0 Vicryl suture in the fascia using a suture passer, 3-O Vicryl in the subcutaneous layers, and 4-0 Monocryl in the skin. The remaining port sites were closed with 4-0 Monocryl in the skin. Each port site was sealed with Dermabond. Local anesthetic was given at each of the port sites and in the fascia. This concluded the procedure. At this point the needle, sponge, and instrument counts were correct. The gallbladder and stone were passed off the table for pathology. Patient was awakened from anesthesia and extubated. He was transferred to the postanesthesia care unit in stable condition. Complications: none Post-operative Condition: stable Disposition: PACU Plan for aftercare: Admit for observation, drain management, IV antibiotics, and pain control
--- NOTE | 2019-02-04 15:14 | SUR.PHASEI ---
PACU Phase 1 note: patient arrived to PACUv via inpatient bed at 1442. Oral airway in place. Respirations regular and unlabored. VSS, O2 Sat WNL on 12 L/ Simple mask. Abdominal surgical sites CDI,ANA to bulb suction. Dression CDI. Patient arousable by voice at 1448, oral airway discontinued and CPAP placed by Respiratory Therapy with O2. Sats WNL on 6 L/VAULT SERVICE MECHANIC. Received handoff report from Dr. Noel and Yue Clark RN.
--- NOTE | 2019-02-04 15:54 | SUR.PHASEI ---
Post op transfer note: VSS, O2 Sat WNL on 5L/TEMPLATE INSPECTOR with CPAP. Occasional cough with sputum production. Patient stated that he has been experiencing oncoming cold symptoms. Medicated for pain level of 4/10 with efffective pain relief. Stable for transfer to inpatient room 211 via inpatient bed. VSS on arrival. Handoff report given to Yue Raymond RN. at bedside.
[2019-02-04] MEDS: LACTATED RINGERS 1,000 ML 125 ML IV (16:23)
[2019-02-04] MEDS: OXYCODONE IR 5 MG TABLET PO (16:30)
--- NOTE | 2019-02-04 16:46 | PC.NURSE ---
arrived to RM 211 @ 1540 Alert/oriented. SpO2 97% via Cpap. Abdomen rounded, three durobond sites CDI RLQ w/ANA drain CDI. Oriented to room and call system Call light w/in reach, bed alarm on for pt safety.
[2019-02-04] MEDS: PIPERACILLIN-TAZO 4.5 GM/100 ML FROZ.PIGGY IV (21:40)
[2019-02-04] MEDS: OXYCODONE/ACETAMINOPHEN 5/325 TABLET 2 TAB PO (22:43)
[2019-02-05] VITALS (7 sets, daily range): BP systolic 122–140; BP diastolic 70–83; PULSE 70–89; RESP 12–20; TEMP 36.6–37.1; O2SAT 93–97
[2019-02-05] MEDS: LACTATED RINGERS 1,000 ML 125 ML IV (00:23)
[2019-02-05] MEDS: PIPERACILLIN-TAZO 4.5 GM/100 ML FROZ.PIGGY IV ×4 (03:40→20:39)
[2019-02-05] MEDS: OXYCODONE/ACETAMINOPHEN 5/325 TABLET 2 TAB PO ×4 (04:52→21:15)
[2019-02-05 06:10] LABS: Add Manual Diff / Slide Review NO; Basophils Absolute Auto 0 /uL (0-100); Basophils Percent Auto 0.3 % (0-2); Eosinophils Absolute Auto 0 /uL (0-450); Hematocrit 40.7 % (41-53); Hemoglobin 13.6 g/dL (13.5-17.5); Lymphocytes Absolute Auto 1500 /uL (1100-4500); Lymphocytes Percent Auto 9.3 % (25-40); Mean Corpuscular HGB Conc 33.4 % (30-36); Mean Corpuscular Hemoglobin 30.9 PG (26-34); Mean Corpuscular Volume 92.5 fL (80-100); Monocytes Absolute Auto 2400 /uL (0-900); Monocytes Percent Auto 15.1 % (3-14); Neutrophils Absolute Auto 12000 /uL (1500-7000); Neutrophils Percent Auto 75.3 % (50-75); Platelet Count 234 X10^3/uL (150-400); Red Blood Cell Count 4.39 X10^6/uL (4.5-5.9); Red Cell Distribution Width 13.2 % (11.6-14.8); White Blood Cell Count 15.9 X10^3/uL (4.5-11.0)
[2019-02-05 06:16] LABS: Alanine Aminotransferase 105 IU/L (<50); Albumin 4.1 g/dL (3.5-5.0); Albumin Globulin Ratio 1.3 (1.0-2.8); Alkaline Phosphatase 80 U/L (38-126); Aspartate Aminotransferase 76 IU/L (17-59); BUN Creatinine Ratio 15.5 (6-22); Bilirubin Total 2.4 mg/dL (0.2-1.3); Blood Urea Nitrogen 17 mg/dL (9-20); Calcium 9.2 mg/dL (8.4-10.2); Carbon Dioxide 31 mmol/L (22-32); Chloride 98 mmol/L (98-107); Estimated Glomerular Filt Rate > 60.0 mL/min (>60); Globulin 3.1 g/dL (1.7-4.1); Glucose 113 mg/dL (70-100); HEMOLYSIS < 15 (0-50); Magnesium 2.2 mg/dL (1.6-2.3); Potassium 4.8 mmol/L (3.4-5.1); Sodium 138 mmol/L (137-145); Total Protein 7.2 g/dL (6.3-8.2)
--- NOTE | 2019-02-05 06:47 | PC.NURSE ---
Pt rates RUQ pain 3 at rest, 9 with movement or coughing. Pain medication given x1 with good relief per pt. ANA drain intact, 30cc serosanguinous drainage overnight, dressing at ANA site CDI. Abd distended, bowel tones active, pt reports passing gas. Surgical glue intact to 3 lap sites. Wears own CPAP at night. Order for ongoing o2 monitoring. Sats 95% on room air. Encouraging IS when awake and TC&DB
--- NOTE | 2019-02-05 07:54 | P.PN_ITS ---
Subjective Subjective Date Patient Seen: 02/05/19 Time Patient Seen: 07:54 Interval history: The patient feels much better, but is persistently short of breath. He has pain when he takes a deep breath. He denies nausea, and feels hungry. He says he feels a ton better than yesterday. Exam Vital Signs (past 8 hours): - 02/05/19 05:45 Temperature 98.0 F Pulse Rate 75 Respiratory Rate 17 Blood Pressure 132/76 Pulse Oximetry 93 Oxygen Delivery Method CPAP Oxygen Flow Rate 0 Objective Imaging Chest x-ray: Radiologist's impression: [address] [address] XRay Report Signed Patient: Ezequiel Rushing#: [id number] : 1975Acct:[id number] Age/Sex: 44 / MDate of Service: 02/05/19 Loc: BZ088-1 Accession Number: [id number] Procedure: XR chest 2V Ordering Provider: Ira Heredia MD PROCEDURE: XR CHEST 2V INDICATIONS: SOB, tachypnea TECHNIQUE: 2 views of the chest were acquired. COMPARISON: [facility], , XR CHEST 1V, 02/04/2019, 5:22. FINDINGS: Surgical changes and devices: None. Lungs and pleura: Mild increased vascularity is present. There is blunting of the left costophrenic angle, unchanged. Linear opacities are present within the retrocardiac region in bases, left greater than right, minimally more prominent when compared to 02/04/19. No pleural effusions or pneumothorax. Mediastinum: Mediastinal contours are normal. Heart size is normal. Bones and chest wall: No suspicious bony abnormalities. Soft tissues appear unremarkable. IMPRESSION: 1. Increased vascularity as well as trace effusion consistent with edema. 2. Minimal increased prominence of linear retrocardiac and bibasilar opacities slightly increased. This could be reflective of atelectasis or potentially developing airspace disease such as pneumonia. Labs Result Diagrams: 02/05/19 05:39 02/05/19 05:39 Labs: Laboratory Results - last 24 hr 02/04/19 02/05/19 02/05/19 16:17 05:39 05:39 WBC 15.9 H RBC 4.39 L Hgb 13.6 Hct 40.7 L MCV 92.5 MCH 30.9 MCHC 33.4 RDW 13.2 Plt Count 234 Neut % (Auto) 75.3 H Lymph % (Auto) 9.3 L Coffee % (Auto) 15.1 H Eos % (Auto) 0.0 L Baso % (Auto) 0.3 Neut # (Auto) 11289 H Lymph # (Auto) 1500 Coffee # (Auto) 2400 H Eos # (Auto) 0 Baso # (Auto) 0 Sodium 138 Potassium 4.8 Chloride 98 Carbon Dioxide 31 BUN 17 Creatinine 1.10 Estimated GFR > 60.0 BUN/Creatinine Ratio 15.5 Glucose 113 H Calcium 9.2 Magnesium 2.2 Total Bilirubin 2.4 H AST 76 H ALT 105 H Alkaline Phosphatase 80 Total Protein 7.2 Albumin 4.1 Globulin 3.1 Albumin/Globulin Ratio 1.3 Blood Type A Positive Antibody Screen Negative Assessment & Plan Assessment and plan (1) Acid reflux: Problem details: Controlled on omeprazole Current visit: Yes Status: Acute (2) Obstructive sleep apnea: Current visit: Yes Status: Acute (3) Obesity (BMI 30.0-34.9): Problem details: BMI 33 Current visit: Yes Status: Acute (4) Elevated bilirubin: Problem details: S/p laparoscopic removal of impacted stone, and subtotal cholecystectomy. Bilirubin 3.1--> 2.4 today Current visit: Yes Status: Acute (5) Acute cholecystitis: Problem details: Severe acute on chronic cholecystitis s/p lap danielle, as above Current visit: Yes Status: Acute Assessment & Plan narrative: This is a 44-year-old man who came in with a severe acute on chronic cholecystitis, was taken to the operating room yesterday where he had disimpaction of a gallstone from his cystic duct, and a subtotal cholecystectomy. A drain was left because of high risk of bile leak, and he was kept overnight for IV antibiotics. He has had shortness of breath since coming in the hospital yesterday. This is not significantly improved after his surgery, although his pain has improved and his labs are improving. I am concerned about his tachypnea, and the high risk of complications from his surgery. I will get a chest x-ray this morning, ask respiratory therapy to see him again, evaluate, and treat. I will ask us nurse to get him up to ambulate. Will feed him a diet, and watch for bile in the drain. Will continue Zosyn for another 24 hours given his severely infected gallbladder and pus that drained out of his gallbladder during surgery. If all goes well, we will plan disposition tomorrow. Plan: IV Zosyn Advanced diet as tolerated Ambulate 20 minutes t.i.d. Chest x-ray Respiratory therapy Follow drain output Call MD if bile and drain Repeat labs in a.m. Quality VTE Deep Vein Thrombosis/Pulmonary Embolism Present on Admission: No
[2019-02-05] MEDS: ENOXAPARIN 40 MG/0.4 ML SYRINGE SUBCUT (09:02)
[2019-02-05] MEDS: DOCUSATE 100 MG CAPSULE PO ×2 (09:02→20:44)
--- NOTE | 2019-02-05 09:06 | CM.DANOTE ---
DCP: Case received, EMR reviewed and met with patient. Introduced self and role. Was able to meet with patient and obtain baseline health and activity information. DCP template/assessment completed with information currently available. Patient is a 44 year old male who admitted yesterday morning to the care of the hospitalist team. PCP: Dr. Zamudio. Payer: confirmed: Criselda Milton. Patient came to the hospital via family vehicle secondary to right sided abdominal discomfort. Patient was recently diagnosed with cholelithiasis from prior visit, and came back to hospital since pain had worsened. Patient holds diagnosis of acute cholecystitis. He had his surgery yesterday. Met with patient in his room. He is alert and oriented, retired [employer]. Lives with his spouse, Chana. He is currently employed at [employer]. He is independent. He stated, he should be able to go home tomorrow. P: DCP to continue to follow closely. He should be able to go home when he is medically stable. Mireya Land RN/Cupola Melter Helper
--- NOTE | 2019-02-05 10:06 | PC.NURSE ---
Day shift: Pt ambulated in halls one full loop around the [facility]. Tolerated well but did have heavy breathing. Spo2 was 92% at RA with HR of 107. He also had an episode of coughing but was able to clear his airway an d make it back to his room. Spouse in room for support.
--- NOTE | 2019-02-05 12:04 | PC.NURSE ---
Day shift: Pt ambulated in the halls again. He walked the entire AC unit with his spouse. Tolerated well. No nausea. Pain 06/11. Pt stated It just feels a bit tight. Eating lunch. Denies any nausea. Encouraged to drink fluids. ANA drain output approx 5ml of sero sanguineous at this time.
[2019-02-05] MEDS: SODIUM CHLORIDE 0.9% FLUSH 10 ML IV ×2 (14:22→20:40)
[2019-02-05] MEDS: PANTOPRAZOLE 20 MG TABLET PO (20:39)
--- NOTE | 2019-02-06 00:30 | PC.NURSE ---
Addendum entered by Ladan Hercules R.N. 02/06/19 04:34: Went for walk in [place] and had walked around [facility] and headed to [facility] when he became SOB. Assisted back to room and when O2 sat monitor placed RA sat was 92%. Now back in bed and still sounding slightly SOB but O2 sat is 97% and HR 80's. Addendum entered by Ladan Hercules R.N. 02/06/19 03:42: Complains of 6/10 incisional pain. Initially declined pain medication but after being up to bathroom agreeable to medication so medicated with Percocet. Original Note: Patient is alert and oriented. Breath sounds CTA with sat of 95% while on CPAP. HRR. Denies nausea. BT hypoactive but is passing flatus. Denies dysuria, frequency or urgency. Independent with mobility/turning. Dressing covering ANA insertion site is CDI. ANA is compressed and intact with small amount serosanguinous fluid in bulb. Lap sites dermabonded, well approximated and without drainage. Abdomen in soft and nontender but mildly distended. Asking questions regarding low fat diet so provided with educational material from [employer]. Wearing bilateral calf SCD's. Denies pain. Fall risks score is moderate.
[2019-02-06] MEDS: PIPERACILLIN-TAZO 4.5 GM/100 ML FROZ.PIGGY IV ×2 (03:34→09:07)
[2019-02-06] MEDS: SODIUM CHLORIDE 0.9% FLUSH 10 ML IV (03:34)
[2019-02-06] MEDS: SODIUM CHLORIDE 0.9% 250 ML 21 ML IV (03:37)
[2019-02-06 03:41] VITALS: BP 132/82; PULSE 74; RESP 19; TEMP 37.1; O2SAT 96
[2019-02-06] MEDS: OXYCODONE/ACETAMINOPHEN 5/325 TABLET 2 TAB PO ×2 (03:41→10:03)
[2019-02-06] MEDS: PANTOPRAZOLE 20 MG TABLET PO (06:31)
[2019-02-06 06:56] LABS: Add Manual Diff / Slide Review NO; Basophils Absolute Auto 100 /uL (0-100); Basophils Percent Auto 0.9 % (0-2); Eosinophils Absolute Auto 100 /uL (0-450); Eosinophils Percent Auto 1.2 % (2-4); Hematocrit 38.6 % (41-53); Hemoglobin 12.9 g/dL (13.5-17.5); Lymphocytes Absolute Auto 2500 /uL (1100-4500); Mean Corpuscular HGB Conc 33.4 % (30-36); Mean Corpuscular Hemoglobin 31.1 PG (26-34); Mean Corpuscular Volume 93.1 fL (80-100); Monocytes Absolute Auto 1100 /uL (0-900); Neutrophils Absolute Auto 5700 /uL (1500-7000); Neutrophils Percent Auto 59.9 % (50-75); Platelet Count 239 X10^3/uL (150-400); Red Blood Cell Count 4.15 X10^6/uL (4.5-5.9); Red Cell Distribution Width 13.2 % (11.6-14.8); White Blood Cell Count 9.4 X10^3/uL (4.5-11.0)
[2019-02-06 07:18] LABS: Alanine Aminotransferase 73 IU/L (<50); Albumin 3.6 g/dL (3.5-5.0); Albumin Globulin Ratio 1.2 (1.0-2.8); Alkaline Phosphatase 74 U/L (38-126); Aspartate Aminotransferase 42 IU/L (17-59); BUN Creatinine Ratio 17.5 (6-22); Bilirubin Total 1.1 mg/dL (0.2-1.3); Blood Urea Nitrogen 21 mg/dL (9-20); Calcium 8.8 mg/dL (8.4-10.2); Carbon Dioxide 31 mmol/L (22-32); Chloride 100 mmol/L (98-107); Estimated Glomerular Filt Rate > 60.0 mL/min (>60); Globulin 3.1 g/dL (1.7-4.1); Glucose 84 mg/dL (70-100); HEMOLYSIS < 15 (0-50); Magnesium 2.2 mg/dL (1.6-2.3); Potassium 4.2 mmol/L (3.4-5.1); Sodium 137 mmol/L (137-145); Total Protein 6.7 g/dL (6.3-8.2)
[2019-02-06 07:25] VITALS: BP 150/63; PULSE 78; RESP 16; TEMP 36.6; O2SAT 94
[2019-02-06] MEDS: ENOXAPARIN 40 MG/0.4 ML SYRINGE SUBCUT (09:06)
[2019-02-06] MEDS: DOCUSATE 100 MG CAPSULE PO (09:06)
[2019-02-06] MEDS: INFLUENZA VACCINE 0.5 ML SYRINGE IM (09:17)
--- NOTE | 2019-02-06 09:24 | P.DS_ITS ---
History of Present Illness History of Present Illness Chief complaint: rt side pain/no deep breaths/shallow breathing Narrative: This is a 44-year-old man with history of obesity, sleep apnea, acid reflux, gallstones with biliary colic, who comes in to the ER this morning complaining of 1 day of severe right upper quadrant pain causing him shortness of breath. He was seen in the ER at [facility] in [facility] on Tuesday, with some epigastric pain and was found to have gallstones but no signs of cholecystitis, and was sent home with pain medicine and antiemetics. His pain resolved on Tuesday, but then started again on Tuesday night after dinner. He denies nausea or vomiting, denies fevers denies jaundice. In the ER he had an ultrasound which showed gallstones, gallbladder wall thickening and pe richolecystic fluid. He also had a bilirubin of 3.1. For this reason he was sent for an urgent MRCP. 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 Past medical history: Sleep apnea, acid reflux, biliary colic, gallstones Past surgical history: Laparoscopic appendectomy with drain placement Allergies: Denies Medications: Omeprazole, oxycodone, Zofran Family history: Patient's mother just had her gallbladder out 2 weeks ago, no other family history of gallbladder disease. No other relevant family history. Social history: Occasional alcohol, denies tobacco, denies other substances. Lives at home with his . ROS: 10 system review was completed. Nothing remarkable other than as mentioned in the HPI. PE: GENERAL: Well groomed and cooperative. Appears stated age. Answers questions promptly and appropriately. Vital signs noted. HENT: Normocephalic, atraumatic. Hearing intact. Oral mucosa is pink and moist. EYES: Conjunctiva pink, sclera white, no periorbital swelling. CARDIOVASCULAR: Regular rate. No pedal edema. RESPIRATORY: Normal respiratory rate, mild tachypnea secondary to right upper quadrant pain GASTROINTESTINAL: Abdomen soft and non-distended; significant tenderness to palpation in the right upper quadrant GENITALURINARY: + right flank tenderness. MUSCULOSKELETAL: Equal tone and mass bilaterally. SKIN: Warm, dry, soft, appropriate color for ethnicity. No other lesions, rashes, or wounds. NEURO: Alert and Oriented X 3. No gross sensory deficits, or cognitive issues. PSYCH: Appropriate affect and mood. Discharge Providers Provider Date of admission: 02/04/19 09:35 Discharge Date: 02/06/19 Consults: 02/04/19 15:45 Consult to Discharge Planning Routine Comment: 02/04/19 15:59 Consult to Respiratory Therapy Evaluate & Treat Comment: MYKE, uses CPAP. s/p Lap Libby Physician Instructions: Evaluate and treat Discharge provider: Ira Heredia MD Summary Hospital Course Discharge Diagnosis: Acute on chronic cholecystitis with impacted gall stone removed and pus drained from the gall bladder in the operating room, with subtotal cholecystectomy. Hospital Course: Pt tolerated subtotal cholecystectomy with removal of impacted stone and drainage of pus from the gall bladder in the OR. The patient had persistent hyperbilirubinemia and leukocytosis on POD#1. For this reason he was kept in the hospital for IV antibiotics, and supportive care. On POD#2 his WBC resolved and hyperbilirubinemia resolved. He tolerated a PO diet. His drain was left in, and he was taught to manage it. He was then discharged home with plans to keep the drain in until at least next week. Status at Discharge Cognitive/behavioral status at discharge: oriented Functional status at discharge: independent ambulation Overall status at discharge: patient is not back to baseline (pain, drain in place) Time Spent with Patient Time spent: Greater than 30 minutes Exam Vital Signs (past 8 hours): - 02/06/19 03:41 02/06/19 07:25 Temperature 98.7 F 97.8 F Pulse Rate 74 78 Respiratory Rate 19 16 Blood Pressure 132/82 150/63 H Pulse Oximetry 96 94 Oxygen Delivery Method CPAP Oxygen Flow Rate 0 Narrative Exam Narrative: GENERAL: Well groomed and cooperative. Appears stated age. Answers questions promptly and appropriately. Vital signs noted. HENT: Normocephalic, atraumatic. Hearing intact. Oral mucosa is pink and moist. EYES: Conjunctiva pink, sclera white, no periorbital swelling. CARDIOVASCULAR: Regular rate. No pedal edema. RESPIRATORY: Normal respiratory rate, breathing comfortably on room air. GASTROINTESTINAL: Abdomen soft and non-distended; appropriate TTP, RUQ drain with serosang output GENITALURINARY: No flank tenderness. MUSCULOSKELETAL: Equal tone and mass bilaterally. SKIN: Warm, dry, soft, appropriate color for ethnicity. No other lesions, rashes, or wounds. NEURO: Alert and Oriented X 3. No gross sensory deficits, or cognitive issues. PSYCH: Appropriate affect and mood. Objective Labs Result Diagrams: 02/06/19 06:45 02/06/19 06:45 Labs: Laboratory Results - last 24 hr 02/06/19 02/06/19 06:45 06:45 WBC 9.4 RBC 4.15 L Hgb 12.9 L Hct 38.6 L MCV 93.1 MCH 31.1 MCHC 33.4 RDW 13.2 Plt Count 239 Neut % (Auto) 59.9 Lymph % (Auto) 26.0 Zavala % (Auto) 12.0 Eos % (Auto) 1.2 L Baso % (Auto) 0.9 Neut # (Auto) 5700 Lymph # (Auto) 2500 Zavala # (Auto) 1100 H Eos # (Auto) 100 Baso # (Auto) 100 Sodium 137 Potassium 4.2 Chloride 100 Carbon Dioxide 31 BUN 21 H Creatinine 1.20 Estimated GFR > 60.0 BUN/Creatinine Ratio 17.5 Glucose 84 Calcium 8.8 Magnesium 2.2 Total Bilirubin 1.1 AST 42 ALT 73 H Alkaline Phosphatase 74 Total Protein 6.7 Albumin 3.6 Globulin 3.1 Albumin/Globulin Ratio 1.2 Discharge Plan Discharge Plan Patient Disposition: Home Discharge comment: You had acute on chronic cholecystitis with an impacted gall stone in your cystic duct. The gall stone was removed and you had a subtotal cholecystectomy. A portion of your gall bladder was left inside and closed with a suture because it was unsafe to remove the whole thing in the setting of significant inflammation and adhesive scar tissue that was present in your abdomen around the gall bladder. Your labs have normalized and your drain output is reassuring that you do not have an ongoing infection, bile obstruction or bile leak. However, your drain is being left in to monitor for a bile leak or abscess and to allow drainage if either of those occur. We will plan to remove it when it is safe to do so. The nursing staff will teach you how to change the dressing around your drain tube, how to protect it from getting pulled out, and how to empty, record output, and recharge the drain bulb. Please call the surgeon's office or come into the ER if you develop fevers, jaundice, significant increase in pain, significant increase in drain output, green colored drain output, or other concerning symptoms. Keep yourself active with light activity but do not do any heavy lifting over ten lbs./pushing/pulling/straining for four weeks after surgery. I recommend that you convalesce at home for at least two weeks after surgery. You may return to work after your follow up appointment if you are doing well enough. That will be determined at your follow up appointment. Please contact our office to make a follow up appointment for next week. Take your pain medication as needed, and switch over to ibuprofen/tylenol when you no longer need the stronger narcotic pain medication. Make sure your pain is controlled well enough to walk around, take deep breaths, and sleep. Discharge Med Rec/Prescriptions Prescriptions: New oxycodone 5 mg tablet 5 mg PO Q4H MDD 6 PRN (Reason: pain) Qty: 30 RF: 0 docusate sodium 100 mg capsule 100 mg PO BID Qty: 60 RF: 0 Discontinued acetaminophen 325 mg tablet 650 mg PO PRN PRN (Reason: Pain, Mild) RF: 0 Follow up/Referrals: Ira Heredia MD [Physician] - (PLEASE MAKE AN APPOINTMENT TO SEE ME IN MY OFFICE NEXT WEEK, CALL TO COME IN SOONER IF ANY PROBLEMS) Provider Discharge Instructions Diet: Diet as Tolerated Diet comment: You can advance your diet to a regular diet as tolerated. Activity: You need to be off of work from the time you came into the ER on 02/04 until two weeks after surgery. The earliest you may return to work will be 02/18/19 if you are approved for return to work at your follow up appointment. When you return to work, you need to be on light duty with no lifting/ pushing/pulling more than 10 lbs and no strenuous activity (basically desk duty) until 03/06. At that point you will be released to full duty, barring any complications which may arise between now and then. Skin/Wound/Dressing Care Report to your healthcare provider any signs of infection, such as:: chills, fever, night sweats, increased pain, unusual drainage and unusual redness Visit Report/Discharge Packet Instructions: DI for Cholecystectomy, DI for Laparoscopy, DI for Eduardo-Grover Drains, Stool Softeners, Oxycodone, [facility]: Wound Care Stand Alone Forms: Surgery Discharge Discharges patient from system. Discharge Date/Time: 02/06/19 11:10 Quality VTE Deep Vein Thrombosis/Pulmonary Embolism Present on Admission: No
--- NOTE | 2019-02-06 09:24 | PM.PN.1 ---
Subjective Subjective Date Patient Seen: 02/06/19 Time Patient Seen: 08:45 Interval history: Pt feeling better. Denies nausea, significant pain. He tolerated PO well. Exam Vital Signs (past 8 hours): - 02/06/19 03:41 02/06/19 07:25 Temperature 98.7 F 97.8 F Pulse Rate 74 78 Respiratory Rate 19 16 Blood Pressure 132/82 150/63 H Pulse Oximetry 96 94 Oxygen Delivery Method CPAP Oxygen Flow Rate 0 Narrative Exam Narrative: GENERAL: Well groomed and cooperative. Appears stated age. Answers questions promptly and appropriately. Vital signs noted. HENT: Normocephalic, atraumatic. Hearing intact. Oral mucosa is pink and moist. EYES: Conjunctiva pink, sclera white, no periorbital swelling. CARDIOVASCULAR: Regular rate. No pedal edema. RESPIRATORY: Normal respiratory rate, breathing comfortably on room air. GASTROINTESTINAL: Abdomen soft and non-distended; appropriate TTP at incision sites; RUQ drain with serosang output, non bilious GENITALURINARY: No flank tenderness. MUSCULOSKELETAL: Equal tone and mass bilaterally. SKIN: Warm, dry, soft, appropriate color for ethnicity. No other lesions, rashes, or wounds. NEURO: Alert and Oriented X 3. No gross sensory deficits, or cognitive issues. PSYCH: Appropriate affect and mood. Objective Labs Result Diagrams: 02/06/19 06:45 02/06/19 06:45 Labs: Laboratory Results - last 24 hr 02/06/19 02/06/19 06:45 06:45 WBC 9.4 RBC 4.15 L Hgb 12.9 L Hct 38.6 L MCV 93.1 MCH 31.1 MCHC 33.4 RDW 13.2 Plt Count 239 Neut % (Auto) 59.9 Lymph % (Auto) 26.0 Meagher % (Auto) 12.0 Eos % (Auto) 1.2 L Baso % (Auto) 0.9 Neut # (Auto) 5700 Lymph # (Auto) 2500 Meagher # (Auto) 1100 H Eos # (Auto) 100 Baso # (Auto) 100 Sodium 137 Potassium 4.2 Chloride 100 Carbon Dioxide 31 BUN 21 H Creatinine 1.20 Estimated GFR > 60.0 BUN/Creatinine Ratio 17.5 Glucose 84 Calcium 8.8 Magnesium 2.2 Total Bilirubin 1.1 AST 42 ALT 73 H Alkaline Phosphatase 74 Total Protein 6.7 Albumin 3.6 Globulin 3.1 Albumin/Globulin Ratio 1.2 Assessment & Plan Assessment and plan (1) Acid reflux: Problem details: Controlled on omeprazole Current visit: No Status: Acute (2) Obstructive sleep apnea: Problem details: RT eval and treat; following Current visit: No Status: Acute (3) Obesity (BMI 30.0-34.9): Problem details: BMI 33 Current visit: No Status: Acute (4) Elevated bilirubin: Problem details: S/p laparoscopic removal of impacted stone, and subtotal cholecystectomy. Bilirubin 3.1--> 2.4 --> 1.1 today RUQ drain non bilious Current visit: No Status: Acute (5) Acute cholecystitis: Problem details: Severe acute on chronic cholecystitis s/p lap danielle, as above Current visit: No Status: Acute Assessment & Plan narrative: This is a 44 yo man who is POD#2 s/p complicated laparoscopic cholecystectomy for acute on chronic cholecystitis with impacted gall stone. He is doing much better, tolerating PO, and his labs have normalized. Plan: Dispo planning PO pain med Drain teaching Follow up next week for eval of drain and possible drain remova Quality VTE Deep Vein Thrombosis/Pulmonary Embolism Present on Admission: No
--- NOTE | 2019-02-06 11:02 | PC.NURSE ---
Day shift: ANA teaching done and all questions answered about the drain and how to shower with it. Pt supplied with dressing change material if needed. Spouse was in room and knows how to do this as well. They both understand how to drain the drain and to keep track of the output. Read through what the MD wrote in d/c paperwork. Paperwork signed and all questions answered. Pt has all personal belongings. Pt has MD scrips.
== END 2019-02-06 11:10 | disposition home or self-care (01) | DRG 418 ==
LOC: ED 07:40 → AC 10:47
PROVIDERS: Emergency Medicine; Admitting Provider Surgery; Emergency Provider Emergency Medicine; Visit Provider Surgery
PROC: 0FT44ZZ Resection of Gallbladder, Percutaneous Endoscopic Approach (ICD-10-PCS; CPT 47562; principal; 2019-02-04 10:25)
DX: K80.12 Calculus of gallbladder with acute and chronic cholecystitis without obstruction (principal); K82.A2 Perforation of gallbladder in cholecystitis; Q44.1 Other congenital malformations of gallbladder; K82.8 Other specified diseases of gallbladder; E66.9 Obesity, unspecified; Z68.33 Body mass index [BMI] 33.0-33.9, adult; G47.33 Obstructive sleep apnea (adult) (pediatric); K21.9 Gastro-esophageal reflux disease without esophagitis
CPT/HCPCS: 36415; 47563; 71045; 71046; 74181; 76000; 76705; 80053; 83690; 83735; 85025; 86850; 86900; 86901; 90471; 90656; 93005; 93010; 94762; 96361; 96365; 99222; 99285; J0330; J1100; J1170; J1650; J2250; J2405; J2543; J2704; J3010; Q2038

== ENCOUNTER 2019-04-07 10:53 | Emergency (ER) | payer OTHER, SELFPAY ==
[2019-02-04 15:49] VITALS: BMI 33.9
[2019-04-07 11:00] VITALS: BP 160/96; PULSE 74; RESP 18; TEMP 36.2; O2SAT 100
--- NOTE | 2019-04-07 11:41 | ED_ITS ---
HPI - Back Pain/Injury General Chief Complaint: Back Pain/Injury Stated Complaint: LOWER BACK PAIN GOES IN TO GROIN AND LEGS Time Seen by Provider: 04/07/19 11:38 Source: patient Mode of arrival: Wheelchair Limitations: no limitations History of Present Illness HPI Narrative: Patient is a 44-year-old male who presents with right-sided back pain ongoing for last 3 weeks but progressively worse. He says initially s tarted when he help getting his daughter into the car. He has done some stretches and he he started going to the chiropractor he went this week but it's actually gotten worse. Today he was in quite a bit of pain he took 1 of his 's Flexeril pills but has not helped. He denies any weakness in his leg it's definitely worse whenever he moves his eye seems to be wrapping around into his groin sometimes into his testicle he denies any abdominal pain no hematuria no flank pain MD Complaint: back pain Onset (ago): week(s) (3) Duration: intermittent Similar Symptoms Previously: Yes Location: lumbar spine Severity: moderate Quality: sharp Related Data Home Medications Medication Instructions Recorded Confirmed omeprazole 20 mg capsule,delayed 20 mg PO DAILY 02/13/19 04/07/19 release Previous Rx's Medication Instructions Recorded diazepam [Valium] 5 mg PO BID PRN #10 tab 04/07/19 hydrocodone-acetaminophen [Northport] 1 tab PO Q6H PRN #10 tab 04/07/19 meloxicam [Mobic] 15 mg PO DAILY #20 tab 04/07/19 Allergies Allergy/AdvReac Type Severity Reaction Status Date / Time No Known Drug Allergies Allergy Verified 04/07/19 11:14 Review of Systems Review of Systems Narrative: GENERAL: Denies chills, fatigue, malaise, fever, sweats, travel HEENT: Denies sinus pain, ear pain, sore throat, difficulty swallowing, neck pain RESPIRATORY: Denies dyspnea, cough, wheezing, hemoptysis, sputum. CARDIOVASCULAR: Denies chest pain, palpitations, orthopnea, edema GASTROINTESTINAL: Denies nausea, vomiting, abdominal pain, diarrhea, constipation, melena. : Denies dysuria, frequency, incontinence, hematuria, urinary retention, flank pain. MUSCULOSKELETAL: See HPI SKIN: No rash, no erythema, no pruritus NEUROLOGIC: Denies weakness, dizziness, headache, numbness, change in speech, confusion PSYCHIATRIC: No concerning psychosocial issues. 12 point review of systems is negative except for those stated above and HPI Patient History Medical History Patient denies medical problems (Acute) Surgical History Hx of appendectomy (Acute) S/P cholecystectomy (Acute) Social History household members: spouse Smoking Status: Never smoker Smoking Status: Never smoker alcohol intake frequency: a few times a month Substance Use Type: does not use Exam Initial Vital Signs Initial Vital Signs: Vital Signs Temperature 97.1 F L 04/07/19 11:00 Pulse Rate 74 04/07/19 11:00 Respiratory Rate 18 04/07/19 11:00 Blood Pressure 160/96 H 04/07/19 11:00 Pulse Oximetry 100 04/07/19 11:00 GENERAL: Well-appearing, well-nourished and in no acute distress. HEENT: Head atraumatic,EOMI, pupils reactive, CARDIOVASCULAR: Regular rate and rhythm without murmurs, rubs or gallops. RESPIRATORY: Breath sounds equal bilaterally, no wheezes rales or rhonchi. ABDOMEN: Soft, nontender. Normoactive bowel sounds all 4 quadrants. No guarding or rebound. BSCK: Right lower lumbar pain no vertebral tenderness no CVA tenderness able to lift right leg up to about 50? EXTREMITIES: Normal range of motion, no clubbing or edema. Neurovascularly intact NEUROLOGICAL: Alert and oriented x4. SKIN: Warm, dry, no laceration, no petechiae, no rashes or lesions. Course Orders Ordered: Discontinued Medications Hydrocodone Bitart/Acetaminophen (Northport 5/325) 2 tab PO NOW ONE Stop: 04/07/19 13:03 Last Admin: 04/07/19 13:10 Dose: 2 tab Documented by: HIRAL Diazepam (Valium) 5 mg PO NOW ONE Stop: 04/07/19 11:53 Last Admin: 04/07/19 12:11 Dose: 5 mg Documented by: HIRAL Ketorolac Tromethamine (Toradol) 30 mg IM NOW ONE Stop: 04/07/19 11:52 Last Admin: 04/07/19 12:09 Dose: 30 mg Documented by: HIRAL Vital Signs Vital signs: Vital Signs - 8 hr 04/07/19 11:00 04/07/19 12:26 Temperature 97.1 F L Pulse Rate 74 68 Respiratory Rate 18 16 Blood Pressure 160/96 H Blood Pressure [Left Arm] 149/88 H Pulse Oximetry 100 98 MDM - Back Pain/Injury MDM Narrative Medical decision making narrative: Patient given Toradol and Valium had some relief, however still unable to quite ambulate he is given Northport and a cane. This does to help him. Discharge Plan Departure Patient Disposition: Home Clinical Impression: Acute back pain with sciatica Qualifiers: Laterality: right Qualified Code(s): M54.41 - Lumbago with sciatica, right side Discharge Date/Time: 04/07/19 13:41 Instructions: DI for Back Pain With Sciatica Activity Restrictions/Additional Instructions: *You have been diagnosed with back pain with right-sided sciatica *What to do: Recommend heating pad hot bath stretching may require physical therapy and possible outpatient MRI. Light activities encouraged no heavy lifting or strenuous activity *Continue to take medications as directed--> SENT TO [facility] [place] Meloxicam 15 mg once a day (START TOMORROW) do not combine with any other NSAIDs such as Aleve, ibuprofen Motrin naproxen, Advil etc Valium 5 mg every 12 hours if needed for muscle spasm Northport 1-2 tablets every 6 hours only if needed for severe pain *Follow up with your primary care provider in 2-3 days *Return to ER if you should have leg weakness loss of urine or stool or any new, worsening or concerning symptoms CONTROLLED SUBSTANCE DISCHARGE (Narcotoic/benzodiazepine/Flexeril/Phenergan) 1. You have been prescribed narcotic medications, it does have acetaminophen/Tylenol/paracetamol in it so do not take extra Tylenol or Tylenol containing products 2. Please understand that we cannot provide further refills of narcotics, benzodiazepines or controlled substances through the ED and her pain management will need to be through your provider. 3. While on these medications you cannot drive or operate heavy machinery. 4. You cannot sign legal documents or perform any duties such as this. 5. As long as you're taking opiate pain medications he should also be taking a stool softener such as Colace, Dulcolax, MiraLAX or prune juice, to help avoid constipation. Prescriptions: New hydrocodone-acetaminophen [Northport] 5-325 mg tablet 1 tab PO Q6H PRN (Reason: pain) Qty: 10 RF: 0 meloxicam [Mobic] 7.5 mg tablet 15 mg PO DAILY Qty: 20 RF: 0 diazepam [Valium] 5 mg tablet 5 mg PO BID PRN (Reason: muscle spasm) Qty: 10 RF: 0 No Action omeprazole 20 mg capsule,delayed release(DR/EC) 20 mg PO DAILY RF: 0 Referrals: Luz Zamudio DO [Primary Care Provider] -
[2019-04-07] MEDS: KETOROLAC 60 MG/2 ML VIAL 30 MG IM (12:09)
[2019-04-07] MEDS: diazePAM 5 MG TABLET PO (12:11)
[2019-04-07 12:26] VITALS: BP 149/88; PULSE 68; RESP 16; O2SAT 98
[2019-04-07] MEDS: HYDROCODONE/ACET 5/325 TABLET 2 TAB PO (13:10)
--- NOTE | 2019-04-07 13:39 | PC.NURSE ---
Patient reports significant pain upon standing and trying to walk, right leg is giving out. Patient able to get to doorway but had to turn around and lie down in bed again. Holding himself again wall and counters while moving about. Dr. Hernandez aware. LUCI Stafford. giving patient cane at this time.
--- NOTE | 2019-04-07 14:12 | PC.NURSE ---
Pt attempted to leave but had continued pain w/ ambulation. Given cane and more rest. Then able to ambulate to bathroom w/ cane's assist. Assisted to car via w/c. feels comfortable going home w/ him. Encouraged to have a low threshold for return if no improvement or any neuro deficit.
== END 2019-04-07 14:15 | disposition home or self-care (01) ==
PROVIDERS: Emergency Provider Emergency Medicine; PCP Family Medicine
DX: M54.41 Lumbago with sciatica, right side (principal)
CPT/HCPCS: 96372; 99283; J1885

== ENCOUNTER 2019-06-01 14:12 | Outpatient (RCR) | payer OTHER, SELFPAY ==
[2019-02-04 15:49] VITALS: BMI 33.9
--- NOTE | 2019-06-01 14:51 | PT-OP ANOTE ---
Pt reports he is 95% recovered from his injury and was prescribed Katherine extension exercises. Pt felt he does not need therapy at this point. No evaluation charge.
--- NOTE | 2019-06-01 15:00 | PT-OP ANOTE ---
Pt came to PT eval today for his LBP. However, pt stated he is 95% recovered at this point and was prescribed with Katherine extension exercises from previous hospital visit. He stated he does not feel like he has the need for therapy. No eval charge.
== END 2019-11-28 11:28 ==
LOC: PHYS 14:12
PROVIDERS: PCP Family Medicine; Referring Provider Family Medicine; Visit Provider Family Medicine
DX: M54.16 Radiculopathy, lumbar region (principal)